=== PATIENT | male | born 1975 | race Caucasian/White ===

== ENCOUNTER 2021-12-24 12:25 | Emergency (ER) | payer BC, SELFPAY ==
[2021-12-24 12:45] VITALS: BP 146/107; PULSE 78; RESP 16; TEMP 36.6; O2SAT 100
--- NOTE | 2021-12-24 13:13 | ED.SKABFB ---
HPI - Skin/Abscess/Foreign Bdy General Chief complaint: Skin/Abscess/Foreign Body <Rivka Hathaway PA-C - Last Filed: 12/24/21 22:59> Stated complaint: lump on leg <SHEILA Nicholas Last Filed: 12/24/21 22:59> Time Seen by Provider: 12/24/21 13:07 <SHEILA Nicholas Last Filed: 12/24/21 22:59> History of Present Illness HPI narrative: Patient is a 46-year-old male here for evaluation of a lesion on his left lateral calf for the past 3 months. Patient states the lesion fluctuates in size and is painful at times. He has cut into the lesion in the past and has drained thick, green material. He last cut into it about a month ago. No other lesions. Denies fevers, chills, nausea, vomiting. <SHEILA Nicholas Last Filed: 12/24/21 22:59> Related Data Allergies/Adverse reactions: Allergies Allergy/AdvReac Type Severity Reaction Status Date / Time valproic acid Allergy Rash Verified 12/24/21 12:57 <SHEILA Nicholas Last Filed: 12/24/21 22:59> Review of Systems Review of Systems: Gen: Denies fevers or chills Eyes: Denies eye pain or visual change ENT: Denies congestion Respiratory: Denies shortness of breath or cough CV: Denies chest pain or palpitations GI: Denies abdominal pain nausea, emesis or diarrhea denies burning, urgency, frequency or hematuria Musculoskeletal: Denies back pain or muscle pain Neuro: Denies numbness, tingling, weakness or focal weakness Skin: Reports lesion to left calf Except as documented, all other systems reviewed and negative <SHEILA Nicholas Last Filed: 12/24/21 22:59> [facility] Family History Family History: Family History (Updated 04/20/11 @ 09:54 by DOCTOR UNKNOWN) Other Depression <SHEILA Nicholas Last Filed: 12/24/21 22:59> Exam Narrative: APPEARANCE: No acute distress, nontoxic, resting in bed EYES: EOMI HEENT: Normocephalic, atraumatic, OMM RESPIRATORY: No respiratory distress Clear to auscultation bilaterally with no rhonchi wheezing or rales. CARDIOVASCULAR: Regular rate and rhythm without murmurs rubs or gallops. ABDOMINAL: Soft, nontender, nondistended, no rebound or guarding MUSCULOSKELETAL: Moves all extremities. No clubbing, cyanosis or edema. NEURO: Awake and alert. Following commands, speech normal, no focal deficits SKIN: Patient has a 3.5 cm, circular lesion to his left upper lateral calf just distal to the patella that is indurated. There is a scab in the center of the lesion and pale ecchymosis surrounding the lesion. No drainage expressed with manual palpation. No surrounding erythema. PSYCHIATRIC: Normal affect/mood <Rivka Hathaway PA-C - Last Filed: 12/24/21 22:59> Course [employer]/PA Physician Supervision P presenting for evaluation of calf lesion that is chronic. Does not appear infected, no surrounding cellulitis. I did perform bedside US and it appears cystic in nature. Shared decision making occurred, pt agrees to I & D however no purulent fluid was expressed. At this point, plan for follow up with plastic surgery. For this patient encounter, I reviewed the [employer] or PA documentation, treatment plan, and medical decision making; and I had [id number] time with this patient. <Celeste Garcia MD - Last Filed: 01/08/22 07:11> Vital Signs Vital signs: Vital Signs Temperature 36.6 C 12/24/21 12:45 Pulse Rate 78 12/24/21 12:45 Respiratory Rate 16 12/24/21 12:45 Blood Pressure 146/107 H 12/24/21 12:45 Pulse Oximetry 100 12/24/21 12:45 Oxygen Delivery Room Air 12/24/21 12:45 Temperature 36.6 C 12/24/21 12:45 Pulse Rate 78 12/24/21 12:45 Respiratory Rate 16 12/24/21 12:45 Blood Pressure 146/107 H 12/24/21 12:45 Pulse Oximetry 100 12/24/21 12:45 Oxygen Delivery Room Air 12/24/21 12:45 <SHEILA Nichoals Last Filed: 12/24/21 22:59> Vital Signs Temperature 36.6 C
== END 2021-12-24 15:50 | disposition home or self-care (01) ==
PROVIDERS: Emergency Provider Emergency Medicine
DX: L02.416 Cutaneous abscess of left lower limb (principal)
CPT/HCPCS: 10060; 99283